=== PATIENT | female | born 1990 | race Two or more races ===

== ENCOUNTER 2020-01-13 06:16 | Inpatient (IN) | payer OTHER ==
[~2020-01-13] VITALS: Ht 170.2 cm; Wt 88.5 kg
[2020-01-13] MEDS ORDERED: PRENATAL TABLE1 EAC1 PO (12:25)
[2020-01-15] MEDS ORDERED: NAPR500T14 PO (08:53)
== END 2020-01-15 10:22 | DRG 768 ==
LOC: LDR 06:16 → OB/GYN 18:40
PROVIDERS: ADMIT Obstetrics & Gynecology; ATTEND Obstetrics & Gynecology
PROC: 10E0XZZ Delivery of Products of Conception, External Approach (ICD-10-PCS; principal; 2020-01-13)
PROC: 0DQR0ZZ Repair Anal Sphincter, Open Approach (ICD-10-PCS; 2020-01-13)
PROC: 4A1HXCZ Monitoring of Products of Conception, Cardiac Rate, External Approach (ICD-10-PCS; 2020-01-13)
DX: O70.21 Third degree perineal laceration during delivery, IIIa (principal); Z37.0 Single live birth; Z3A.38 38 weeks gestation of pregnancy; Z22.330 Carrier of Group B streptococcus